=== PATIENT | female | born 1975 | race Two or more races ===

== ENCOUNTER 2024-06-27 06:34 | Emergency (ER) | payer MEDICAID, SELFPAY ==
[2024-06-27 06:43] VITALS: BP 125/81; PULSE 71; RESP 18; TEMP 36.8; O2SAT 100
--- NOTE | 2024-06-27 06:43 | EKG_ITS ---
[facility] Test Date: 2024-06-27 Pat Name: HARIKA SOLORIO Department: Room: - Gender: Female Sub Acute Care Nurse: : 1975 Requested By: Kvng Kennedy (NILESH) Order Number: [id number] Reading MD: Kvng Kennedy (BILINGUAL ADMINISTRATIVE ASSISTANT) Measurements Intervals [place] Rate: 72 P: 38 LA: 194 QRS: 61 QRSD: 86 T: 36 QT: 400 QTc: 439 Interpretive Statements SINUS RHYTHM WITH SINUS ARRHYTHMIA No previous ECG available for comparison /store/S0/[id number]
--- NOTE | 2024-06-27 06:49 | XR_ITS ---
Examination: CT brain head without contrast. 2-D sagittal coronal reconstructions Date and time of exam:June 27, 2024 at 0658 hrs. Indications: Nausea vomiting today with lump sensation in the throat altered mental status CTDI: vol (mGy):50.9 DLP: (mGycm):955 Technique: Multiple CT axial sections of the brain have been obtained, 5 mm slice thickness. Contrast has not been administered. 2-D sagittal, coronal reconstructions have been obtained Low dose protocols were performed. One or more of the following dose reduction techniques were used; automated exposure control, adjustment of the mA and/or KV according to patient size, use of iterative reconstruction technique. Findings: No significant ventricular enlargement. Intra-axial or extra-axial hemorrhage density is not seen. No mass effect or midline shift Basal cisterns are not remarkable. Fourth ventricle is midline. Cranial vault intact. Impression: Negative for acute hemorrhage, mass effect or midline shift
--- NOTE | 2024-06-27 06:49 | XR_ITS ---
Examination: AP chest single view Technique: AP upright portable chest single view Exam date: June 27, 2024 at 0720 hrs. Indications: Onset chest pain today. Findings: Normal heart size 3 mm pulmonary nodule right upper lobe No pneumonia or pulmonary edema Probable interval artifact over the right apex but clinical correlation advised Impression: No pneumonia identified In the absence of prior chest films recommended 3 month follow-up PA chest to document stability of small pulmonary nodule in the right upper lobe
[2024-06-27 06:55] VITALS: BP 125/81; PULSE 71; RESP 17; TEMP 36.8; O2SAT 100
--- NOTE | 2024-06-27 07:02 | PD.EDRME ---
Rapid Medical Screening Exam RME Arrival date/time: 06/27/24 06:34 49-year-old female presents emerged part with a complaint of headache and dizziness patient appears to be quite anxious Chief Complaint: Headache Vital signs: Vital Signs Temperature 98.2 F 06/27/24 06:43 Pulse Rate 71 06/27/24 06:43 Respiratory Rate 18 06/27/24 06:43 Blood Pressure 125/81 06/27/24 06:43 Pulse Oximetry (%) 100 06/27/24 06:43 Oxygen Delivery Method Room Air 06/27/24 06:43
[2024-06-27] MEDS: SODIUM CHLORIDE 0.9% 1000 ML 1,000 ML 999 ML IV (07:43)
[2024-06-27] MEDS: ONDANSETRON INJ 2 MG/ML INJ 2 ML 4 MG IV (07:48)
[2024-06-27] MEDS: LORazepam 2 MG/ML VIAL 0.75 MG IVP (07:49)
[2024-06-27 07:54] VITALS: PULSE 58
[2024-06-27 07:54] LABS: Basophils % (Auto) 1 % (0-2.5); Eosinophils # (Auto) 0.1 Thou/mm3 (0.0-0.5); Eosinophils % (Auto) 1 % (0-10); Hematocrit 38.5 % (36.0-46.0); Hemoglobin 13.4 g/dL (12.0-16.0); Immature Granulocytes % (Auto) 0 % (0-0); Immature Granulocytes Auto 0.01 Thou/mm3 (0.00-0.00); Lymphocytes # (Auto) 1.5 Thou/mm3 (1.0-4.8); Lymphocytes % (Auto) 30 % (10-50); Mean Corpuscular HGB Conc 34.8 g/dl (31.0-37.0); Mean Corpuscular Volume 86 fL (80-100); Monocytes # (Auto) 0.4 Thou/mm3 (0.0-0.8); Monocytes % (Auto) 8 % (0-12); Neutrophils % (Auto) 60 % (37-80); Nucleated Red Blood Cell % 0 /100 WBC (0); Platelet Count 233 Thou/mm3 (140-440); RDW Standard Deviation 39.1 fL (36.4-46.3); Red Blood Count 4.47 Miln/mm3 (4.00-5.20); White Blood Count 5.1 Thou/mm3 (3.6-11.0)
[2024-06-27 07:55] VITALS: BMI 28.3
[2024-06-27 08:02] LABS: INR 1.1 (0.9-1.3); Partial Thromboplastin Time 25.4 Seconds (22.0-36.0); Prothrombin Time 11.5 Seconds (9.0-12.2)
[2024-06-27 08:09] VITALS: BP 120/70; PULSE 61; RESP 16; TEMP 36.6; O2SAT 99
[2024-06-27 08:22] LABS: Collection Type, Urine Clean Catch
[2024-06-27 08:28] LABS: Alanine Aminotransferase 15 U/L (10-49); Albumin, Serum 4.5 gm/dL (3.5-5.0); Albumin/Globulin Ratio 1.6 (1.2-2.2); Alkaline Phosphatase 69 U/L (46-116); Anion Gap 10 (7-16); Aspartate Amino Transferase 27 U/L (0-34); BUN/Creatinine Ratio 13 Ratio (12-20); Bilirubin,Total 0.7 mg/dL (0.3-1.2); Blood Urea Nitrogen 10 mg/dL (9-23); Calcium 9.7 mg/dL (8.3-10.6); Calcium (Corrected) 9.7 mg/dL (8.5-10.1); Carbon Dioxide 23.8 mMol/L (20.0-31.0); Chloride 106 mMol/L (98-107); Creatinine (Component) 0.8 mg/dL (0.6-1.3); Globulin 2.9 gm/dL (2.3-3.5); Glucose 102 mg/dL (74-106); Magnesium 2.2 mg/dL (1.6-2.6); Osmolality,Calculated 278 (275-295); Potassium 3.6 mMol/L (3.4-5.1); Sodium 140 mMol/L (136-145); Thyroid Stimulating Hormone 1.81 uIU/mL (0.55-4.78); Total Protein 7.4 gm/dL (5.7-8.2); Troponin I < 0.002 ng/mL (0.0-0.045); eGFR > 60 See Note
[2024-06-27 08:38] LABS: Amorphous Crystals,Urine Present (Absent); Bilirubin,Urine Negative (Negative); Blood,Urine Negative (Negative); Clarity,Urine Clear (Clear/Hazy); Color,Urine Lt-Yellow (Lt Yel-Yel); Glucose, Urine Negative (Negative); Ketones,Urine Negative (Negative); Leukocyte Esterase,Urine Negative (Negative); Nitrite,Urine Negative (Negative); PH,Urine 8.5 (5.0-7.0); Protein,Urine Negative (Neg - Trace); RBC,Urine 1 /hpf (0-3); Specific Gravity,Urine 1.008 (1.001-1.035); Squamous Epithelial Cell,Urine 1 /hpf (0-5); Urobilinogen,Urine Negative mg/dL (0.0-1.0); WBC,Urine 5 /hpf (0-5)
--- NOTE | 2024-06-27 08:38 | PD.EDADULT ---
ED General RME/HPI General Chief complaint: Headache Stated complaint: SEVERE HEADACHE, DIZZY, DIAPHORETIC Time Seen by Provider: 06/27/24 07:20 Arrival date/time: 06/27/24 06:34 RME / HPI RME / HPI narrative: 06/27/24 06:34 49-year-old female presents emerged part with a complaint of headache and dizziness patient appears to be quite anxious This section includes all my notes and documentations, including HPI, PE, and ED course. Marcus Johnson MD HPI: 49-year-old female here with sudden very uncomfortable symptoms of intense fear, pounding and racing heart, sweating, chills, shaking, trouble breathing, chest pain, stomach pain, nausea, numbness and tingling in the hands and feet and face, confusion, hot flashes, and feeling faint. No other complaints. ROS: All negative except as documented in HPI. Physical Exam: General: Alert and oriented. Appears severely anxious. Eyes: Conjunctivae and lids clear. EOMI. PERRL. ENT: No nasal congestion. Pharynx normal. Tympanic membrane normal bilaterally. Neck: Supple. No lymphadenopathy. No JVD. Heart: RRR. Lungs: No respiratory distress. Good air movement. No rhonchi, wheezing, rales. Chest: No tenderness. Abdomen: Soft and nontender. Normal bowel sounds. No distension. No rebound or guarding. Back: No CVA tenderness. Legs: No clubbing, cyanosis, edema. Skin: Warm and dry. Neuro: Alert and oriented X 3. Cranial Nerves II-XII grossly intact. No peripheral motor deficits. I reviewed all diagnostic test results. My interpretation of the EKG is sinus rhythm with no ST?T changes. My interpretation of the chest x-ray is no acute findings. My review of the head CT report is no acute findings. Blood tests and urine tests are unremarkable, including negative troponin/D-dimer/BNP. At this point, diagnoses include anxiety. Treatment here included Ativan. Significant improvement noted. Recommended more outpatient workup. Based on my best medical judgment, made decision no further evaluation or treatment indicated at this time. Patient understands and agrees to the discharge instructions customized and printed, see below. Discharge instructions from Dr. Johnson: 1. After extensive evaluation, there is no life-threatening condition.? Such as stroke or brain tumor or heart attack or pulmonary embolism (blood clots in your lungs) or pneumothorax (collapsed lung). 2. Your symptoms may be due to underlying stress or anxiety or nerves.? This is fairly common. 3. Take Xanax as needed.? Whether this helps or not will be valuable information to your private doctors. 4. See a private doctor on 06/28/2024 for recheck and further care. Ask to review all test results and official radiology reports, to make sure you receive all necessary follow-ups and monitoring. To make sure there is no serious underlying heart condition, ask to help you get more tests for your heart that cannot be done here in the ER.? Such as Holter Monitor (cardiac monitoring at home from a day to even a month), heart stress test (on treadmill or with medication), echocardiogram (imaging of your heart structures), heart catherization (checking for blockages in your heart arteries), and a referral to see a Corporate Physical Security Supervisor. 5. Seek immediate medical care with worsening or with any concerns.?? Marcus Johnson MD Related Data Home Medications ?Medication ?Instructions ?Recorded ?Confirmed acetaminophen 500 mg tablet 500 mg PO DAILY PRN headaches 03/18/22 03/18/22 Previous Rx's ?Medication ?Instructions ?Recorded alprazolam 0.5 mg tablet (Xanax) 0.5 mg PO BID PRN anxiety #10 tabs 06/27/24 Allergies Allergy/AdvReac Type Severity Reaction Status Date / Time No Known Allergies Allergy Verified 03/18/22 08:54 Course Quality Measures none Orders Category Date Time Status Block And Case Maker NOW Care 06/27/24 06:49 Active EKG (ED ONLY) *Do not use* NOW Care 06/27/24 06:43 Completed Saline [Insert IV] NOW Care 06/27/24 07:[address] head/brain wo con Stat Exams 06/27/24 06:49 Completed EKG (ED Only) Stat Exams 06/27/24 06:43 Draft XR chest 1V portable Stat Exams 06/27/24 06:49 Completed CBC Stat Lab 06/27/24 07:41 Completed Comprehensive Metabolic Panel Stat Lab 06/27/24 07:41 Completed Drug Screen,Urine Stat Lab 06/27/24 08:05 Completed HCG Qualitative,Urine Stat Lab 06/27/24 08:09 Completed Magnesium Stat Lab 06/27/24 07:41 Completed Partial Thromboplastin Time Stat Lab 06/27/24 07:41 Completed Prothrombin Time with INR Stat Lab 06/27/24 07:41 Completed Thyroid Stimulating Hormone Stat Lab 06/27/24 07:41 Completed Troponin I Stat Lab 06/27/24 07:41 Completed Urinalysis Stat Lab 06/27/24 08:09 Completed ALPRazoLAM [Xanax] Med 06/27/24 06:49 Discontinued 0.25 mg PO X1 ONE LORazepam [Ativan Inj] Med 06/27/24 07:21 Discontinued 0.75 mg IVP X1 ONE Ondansetron Inj [Zofran Inj] Med 06/27/24 07:21 Discontinued 4 mg IV X1 ONE Sodium Chloride 0.9% 1000 ml [Ns] 1,000 ml Med 06/27/24 07:21 Discontinued IV 999 mls/hr Vital Signs Vital signs: Vital Signs Temperature 98.2 F 06/27/24 06:43 Pulse Rate 71 06/27/24 06:43 Respiratory Rate 18 06/27/24 06:43 Blood Pressure 125/81 06/27/24 06:43 Pulse Oximetry (%) 100 06/27/24 06:43 Oxygen Delivery Method Room Air 06/27/24 06:43 [facility] Patient data External records reviewed:: None Clinical information provided by:: patient, family and spouse Social determinants that could affect healthcare access:: none Patient has the following chronic illnesses:: None How is presenting disease/condition affected by chronic disease/condition?: no chronic disease Evaluation data The following diagnostics were reviewed and interpreted by me:: lab results, radiology exam(s) and EKG tracing(s) Lab and/or radiology exams considered but not ordered:: None Interpretation Summary: Normal diagnostics Medications Medications considered but not ordered:: None Medication administrations:: Medication Administration History Discontinued Medications Alprazolam (Alprazolam 0.25 Mg Tablet) 0.25 mg PO X1 ONE Stop: 06/27/24 06:50 Last Admin: 06/27/24 07:44 Dose: Not Given Documented By: VG Non-Admin Reason: Discontinued Sodium Chloride (Ns) 1,000 mls @ 999 mls/hr IV .Q1H1M ONE Stop: 06/27/24 08:21 Last Infusion: 06/27/24 09:02 Dose: Infused Documented By: Admin: 06/27/24 07:43 Dose: 999 mls/hr Documented By: NUNO Lorazepam (Lorazepam 2 Mg/Ml Vial) 0.75 mg IVP X1 ONE Stop: 06/27/24 07:22 Last Admin: 06/27/24 07:49 Dose: 0.75 mg Documented By: NUNO Ondansetron HCl (Ondansetron Inj 2 Mg/Ml Inj 2 Ml) 4 mg IV X1 ONE; Protocol Stop: 06/27/24 07:22 Last Admin: 06/27/24 07:48 Dose: 4 mg Documented By: NUNO Ativan Consultations Consultation(s) initiated? (list below): No Diagnosis Differential Diagnosis ED Complaint MDM: CVA, brain tumor, [place], anxiety, PE Most likely diagnosis given after review of the tests above:: Anxiety reaction Admission Indicated Admission indicated?: not indicated Explain why admission is indicated or not indicated:: With significant improvement, admission was not indicated. Admission Request Was there a request for admission?: No Disposition Plan Disposition Plan: Discharge Discharge Attestation Discharge Attestation: The patient and all family members were given an opportunity to ask questions and understood the discharge instructions. Discharge instructions specifically effects, indications for sooner follow up or return to the emergency department, and the expected course of current diagnosis. Patient condition: Stable Medical Decision Making Differential Diagnosis Differential Diagnosis: CVA, brain tumor, [place], anxiety, PE Lab Data 06/27/24 07:41 06/27/24 07:41 Labs: Lab Results 06/27/24 06/27/24 06/27/24 Range/Units 07:41 08:05 08:09 WBC 5.1 (3.6-11.0) Thou/mm3 RBC 4.47 (4.00-5.20) Miln/mm3 Hgb 13.4 (12.0-16.0) g/dL Hct 38.5 (36.0-46.0) % MCV 86 (80-100) fL MCH 30.0 (25.0-35.0) pg MCHC 34.8 (31.0-37.0) g/dl RDW Std Deviation 39.1 (36.4-46.3) fL Plt Count 233 (140-440) Thou/mm3 Neut % (Auto) 60 (37-80) % Lymph % (Auto) 30 (10-50) % [place] % (Auto) 8 (0-12) % Eos % (Auto) 1 (0-10) % Baso % (Auto) 1 (0-2.5) % Neut # (Auto) 3.0 (1.8-7.7) Thou/mm3 Lymph # (Auto) 1.5 (1.0-4.8) Thou/mm3 [place] # (Auto) 0.4 (0.0-0.8) Thou/mm3 Eos # (Auto) 0.1 (0.0-0.5) Thou/mm3 Baso # (Auto) 0.0 (0.0-0.2) Thou/mm3 Immature Gran # (Auto) 0.01 H (0.00-0.00) Thou/mm3 Absolute Nucleated RBC 0.00 (0.00-0.00) Thou/mm3 Immature Gran % 0 (0-0) % Nucleated RBC % 0 (0) /100 WBC PT 11.5 (9.0-12.2) Seconds INR 1.1 (0.9-1.3) APTT 25.4 (22.0-36.0) Seconds Sodium 140 (136-145) mMol/L Potassium 3.6 (3.4-5.1) mMol/L Chloride 106 (98-107) mMol/L Carbon Dioxide 23.8 (20.0-31.0) mMol/L Anion Gap 10 (7-16) BUN 10 (9-23) mg/dL Creatinine 0.8 (0.6-1.3) mg/dL Estim Creat Clear Calc 83.0 (>60) mL/min eGFR > 60 (60 - ) See Note BUN/Creatinine Ratio 13 (12-20) Ratio Glucose 102 (74-106) mg/dL Calculated Osmolality 278 (275-295) Calcium 9.7 (8.3-10.6) mg/dL Corrected Calcium 9.7 (8.5-10.1) mg/dL Magnesium 2.2 (1.6-2.6) mg/dL Total Bilirubin 0.7 (0.3-1.2) mg/dL AST 27 (0-34) U/L ALT 15 (10-49) U/L Alkaline Phosphatase 69 (46-116) U/L Troponin I < 0.002 (0.0-0.045) ng/mL Total Protein 7.4 (5.7-8.2) gm/dL Albumin 4.5 (3.5-5.0) gm/dL Globulin 2.9 (2.3-3.5) gm/dL Albumin/Globulin Ratio 1.6 (1.2-2.2) TSH 1.81 (0.55-4.78) uIU/mL Ur Collection Type Clean Catch Urine Color Lt-Yellow (Lt Yel-Yel) Urine Clarity Clear (Clear/Hazy) Urine pH 8.5 H (5.0-7.0) Ur Specific [place] 1.008 (1.001-1.035) Urine Protein Negative (Neg - Trace) Urine Glucose (UA) Negative (Negative) Urine Ketones Negative (Negative) Urine Blood Negative (Negative) Urine Nitrite Negative (Negative) Urine Bilirubin Negative (Negative) Urine Urobilinogen (Auto) Negative (0.0-1.0) mg/dL Ur Leukocyte Esterase Negative (Negative) Urine RBC 1 (0-3) /hpf Urine WBC 5 (0-5) /hpf Ur Squamous Epith Cells 1 (0-5) /hpf Amorphous Crystals Present A (Absent) Urine Bacteria None (None) Urine HCG, Qual Negative Urine Opiates Screen Negative (Negative) Urine Fentanyl Screen Negative (Negative) Ur Barbiturates Screen Negative (Negative) U Amphetamin/Meth Scrn Negative (Negative) U Benzodiazepines Scrn Negative (Negative) U Cocaine Metab Screen Negative (Negative) U Marijuana (THC) Screen Negative (Negative) Discharge Plan Plan Patient Disposition: HOME (Self Care) Prescriptions/Referrals Prescriptions/Med Rec: New alprazolam [Xanax] 0.5 mg tablet 0.5 mg PO BID PRN (Reason: anxiety) Qty: 10 0RF No Action acetaminophen 500 mg Tablet 500 mg PO DAILY MDD 1 PRN (Reason: headaches) Referrals: No Primary/Family,Physician [Primary Care Provider] - In 1 week Problem List Clinical Impression: Anxiety reaction Patient/Caregiver Discharge Instructions Discharge Activity: activity as tolerated Education Materials: ED Anxiety Reaction, ED Panic Attack Additional Instructions: Discharge instructions from Dr. Johnson: 1. After extensive evaluation, there is no life-threatening condition.? Such as stroke or brain tumor or heart attack or pulmonary embolism (blood clots in your lungs) or pneumothorax (collapsed lung). 2. Your symptoms may be due to underlying stress or anxiety or nerves.? This is fairly common. 3. Take Xanax as needed.? Whether this helps or not will be valuable information to your private doctors. 4. See a private doctor on 06/28/2024 for recheck and further care. Ask to review all test results and official radiology reports, to make sure you receive all necessary follow-ups and monitoring. To make sure there is no serious underlying heart condition, ask to help you get more tests for your heart that cannot be done here in the ER.? Such as Holter Monitor (cardiac monitoring at home from a day to even a month), heart stress test (on treadmill or with medication), echocardiogram (imaging of your heart structures), heart catherization (checking for blockages in your heart arteries), and a referral to see a Corporate Physical Security Supervisor. 5. Seek immediate medical care with worsening or with any concerns.?? Instrucciones de liliana del Dr. Johnson: 1. Despu?s de shruthi evaluaci?n exhaustiva, no hay ninguna afecci?n que ponga en peligro la srinivasa, hermilo un derrame cerebral, un tumor cerebral, un ataque card?aco, shruthi embolia pulmonar (co?gulos de ambrosio en los pulmones) o un neumot?rax (colapso pulmonar). 2. Jude s?ntomas pueden deberse a estr?s, ansiedad o nervios subyacentes. [place] es bastante com?n. 3. [place] Xanax seg?n sea necesario. Si esto ayuda o no, ser? shruthi informaci?n valiosa para jude m?dicos privados. 4. Visite a un m?dico privado el 28/06/2024 para un nuevo control y m?s atenci?n. Pida revisar todos los resultados de las pruebas y los informes radiol?gicos oficiales, para asegurarse de recibir todos los seguimientos y la monitorizaci?n necesarios. Para asegurarse de que no haya shruthi afecci?n card?wally subyacente grave, pida ayuda para que le realicen m?s pruebas para el coraz?n que no se pueden realizar aqu? en la jacky de emergencias. [place] por ejemplo, un monitor Holter (monitoreo card?aco en el hogar que dura desde un d?a hasta un mes), shruthi prueba de esfuerzo card?aco (en shruthi cinta de correr o con medicaci?n), un ecocardiograma (im?genes de las estructuras del coraz?n), un cateterismo card?aco (para comprobar si hay obstrucciones en las arterias del coraz?n) y shruthi derivaci?n para mo a un cardi?logo. 5. Busque atenci?n m?dica inmediata si hitchcock estado empeora o si tiene alguna inquietud. Print Language: Syriac Stand Alone Forms: Marina Award Info., Patient Portal Info Letter
[2024-06-27 08:45] LABS: HCG Qualitative,Urine Negative
[2024-06-27 08:49] LABS: Amphetamine/Methamp Scrn,U Negative (Negative); Barbiturate Screen,Urine Negative (Negative); Benzodiazepines Screen,Urine Negative (Negative); Benzoylecgonine Screen, Ur Negative (Negative); Fentanyl Screen,Urine Negative (Negative); Opiate Screen,Urine Negative (Negative); THC Screen,Urine Negative (Negative)
[2024-06-27 09:14] VITALS: BP 123/65; PULSE 60; RESP 16; TEMP 36.6; O2SAT 98
== END 2024-06-27 09:15 | disposition home or self-care (01) ==
PROVIDERS: Nurse Practitioner Primary Care; Emergency Provider Emergency Medicine
DX: F41.1 Generalized anxiety disorder (principal); R51.9 Headache, unspecified; R07.9 Chest pain, unspecified
CPT/HCPCS: 36415; 70450; 71045; 80053; 80307; 81001; 81025; 83735; 84443; 84484; 85025; 85610; 85730; 93005; 96361; 96374; 96375; 99284; J2060; J2405; J7030

== ENCOUNTER → 2025-03-01 | Outpatient (CLI) | payer MEDICAID, SELFPAY ==
--- NOTE | 2025-03-01 16:45 | XR_ITS ---
Examination: Screening digital mammography, bilateral Computer aided detection 3-D breast Tomosynthesis, bilateral Date and time of exam: March 01, 2025, 1540 hours, comparison May 27, 2021 Indication: Screening Technique: Nonmagnified MLO, CC views of the breasts to been obtained, reconstructed from 3-D Tomosynthesis images. R2 computer aided detection program utilized for evaluation of suspicious masses and/or abnormal calcifications. 3-D Tomosynthesis images obtained. Findings: Scattered areas of fibroglandular density. 7 mm nodule upper outer right breast partially circumscribed margins Impression: BI-RADS Category 0: Incomplete: Need additional imaging evaluation Recommend follow-up spot tomographic views of nodule upper outer right breast as well as right breast sonography to complete
== END | disposition home or self-care (01) ==
LOC: CDIM 15:01
PROVIDERS: Referring Provider Nurse Practitioner Family; Visit Provider Nurse Practitioner Family
DX: Z12.31 Encounter for screening mammogram for malignant neoplasm of breast (principal); N63.11 Unspecified lump in the right breast, upper outer quadrant
CPT/HCPCS: 77063; 77067

== ENCOUNTER → 2025-04-03 | Outpatient (CLI) | payer MEDICAID, SELFPAY ==
--- NOTE | 2025-04-03 15:15 | XR_ITS ---
Examination: Diagnostic digital mammography, unilateral, right Computer aided detection 3-D breast Tomosynthesis, unilateral Date and time of exam: April 03, 2025, 1535 hours INDICATIONS: Mammogram March 01, 2025 7 mm nodule upper outer right breast Technique: Nonmagnified MLO, CC views of the right breast have been obtained, reconstructed from 3-D Tomosynthesis images. R2 computer aided detection program utilized for evaluation of suspicious masses and/or abnormal calcifications. 3-D Tomosynthesis images obtained. Findings: Scattered areas of fibroglandular density No suspicious nodule confirmed on the spot compression views Impression: BI-RADS category 2: Benign findings Return to yearly follow-up mammography
--- NOTE | 2025-04-03 16:30 | XR_ITS ---
Examination: Breast ultrasound, unilateral, right complete Date and time of exam: April 03, 2025: 1508 hours INDICATION: Mammogram March 01, 2025 7 mm nodule outer right breast Technique: Real-time kay scale ultrasonographic imaging performed right breast including all 4 quadrants as well as nipple retroareolar and axillary region. Findings: 10:00 cyst 5 x 3 mm No solid nodules IMPRESSION: BI-RADS Category 2: Benign findings, benign-appearing cyst, likely corresponding to the mammographic abnormality
== END | disposition home or self-care (01) ==
DX: R92.321 Mammographic fibroglandular density, right breast (principal); N60.01 Solitary cyst of right breast
CPT/HCPCS: 76641; 77061; 77065; G0279